=== PATIENT | male | born 1990 | race Caucasian/White ===

== ENCOUNTER 2016-10-17 18:40 | Emergency (ER) | payer OTHER ==
[2016-10-17 19:08] VITALS: BP 139/75
--- NOTE | 2016-10-17 21:00 | ED GENERAL ADULT ---
History of Present Illness General Chief Complaint: ETOH/Drug Related Complaint Stated Complaint: ETOH/HEROIN DETOX Source: patient, family Exam Limitations: no limitations Vital Signs & Intake/Output Vital Signs & Intake/Output Vital Signs Date Time Temp Pulse Resp B/P Pulse O2 O2 Flow FiO2 Ox Delivery Rate 10/17 2120 Room Air 10/17 1908 101 20 139/75 99 ED Intake and Output 10/18 0000 10/17 1200 Intake Total Output Total Balance Patient 152 lb Weight Allergies Coded Allergies: codeine (NAUSEA 10/17/16) Triage Note: PER PT NEED ETOH/HEROIN DETOX LAST USE 1 HR AGO REPORTS MORE HEROIN THAN ETOH Triage Nurses Notes Reviewed? yes HPI: She presents requesting detox from heroin. Patient sniffs heroin. 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 Patient states he occasionally drinks but not that often. There has been no history of DTs or seizures. There are no blackouts. Patient denies any suicidal or homicidal ideations. Patient denies any chest pain or shortness of breath. Past History Travel History Traveled to [place] past 21 day No Medical History Any Pertinent Medical History? see below for history Neurological: NONE EENT: NONE Cardiovascular: NONE Respiratory: NONE Gastrointestinal: NONE Hepatic: NONE Renal: NONE Musculoskeletal: NONE Psychiatric: ADD Endocrine: NONE Surgical History Surgical History: non-contributory Psychosocial History What is your primary language Syriac Tobacco Use: Current Daily Use Daily Tobacco Use Amount/Type: => 5 Cigarettes daily ETOH Use: occasional use Illicit Drug Use: heroin Family History Hx Contributory? No Review of Systems Review of Systems Constitutional: Reports: no symptoms. EENTM: Reports: no symptoms. Respiratory: Reports: no symptoms. Cardiovascular: Reports: no symptoms. GI: Reports: no symptoms. Genitourinary: Reports: no symptoms. Musculoskeletal: Reports: no symptoms. Skin: Reports: no symptoms. Neurological/Psychological: Reports: no symptoms. Hematologic/Endocrine: Reports: no symptoms. Immunologic/Allergic: Reports: no symptoms. All Other Systems: Reviewed and Negative Physical Exam Physical Exam General Appearance: well developed/nourished, alert, awake, mild distress Head: atraumatic, normal appearance Eyes: Bilateral: PERRL, EOMI. Ears, Nose, Throat: normal pharynx, normal ENT inspection, hearing grossly normal Neck: normal inspection, supple, full range of motion Respiratory: normal breath sounds, chest non-tender, no respiratory distress, lungs clear Cardiovascular: regular rate/rhythm, normal peripheral pulses Gastrointestinal: normal bowel sounds, soft, non-tender, no organomegaly Back: normal inspection, normal range of motion Extremities: normal inspection, normal capillary refill, normal range of motion, no edema Neurologic/Psych: no motor/sensory deficits, awake, alert, oriented x 3, normal gait, normal mood/affect Skin: intact, normal color, warm/dry Lymphatic: no anterior cervical carlos Core Measures ACS in differential dx? No CVA/TIA Diagnosis: No Severe Sepsis Present: No Septic Shock Present: No Progress Differential Diagnoses I considered the following diagnoses in my evaluation of the patient: [Opiate dependency] Plan of Care: Orders Procedure Date/time Status Add-on Test (ER Only) 10/18 2123 Active CBC WITHOUT DIFFERENTIAL 10/17 2099 Complete COMPREHENSIVE METABOLIC PANEL 10/17 2040 Complete URINE DRUG SCREEN FOR ER ONLY 10/17 190 Complete ETHANOL 10/17 190 Complete Laboratory Tests 10/17/16 2100: Sodium Cancelled, Potassium Cancelled, Chloride Cancelled, Carbon Dioxide Cancelled, Anion Gap Cancelled, BUN Cancelled, Creatinine Cancelled, BUN/ Creatinine Ratio Cancelled, Glucose Cancelled, Calcium Cancelled, Total Bilirubin Cancelled, AST Cancelled, ALT Cancelled, Alkaline Phosphatase Cancelled, Total Protein Cancelled, Albumin Cancelled, Globulin Cancelled, Albumin/Globulin Ratio Cancelled 10/17/162040: Anion Gap 15, Estimated GFR > 60, BUN/Creatinine Ratio 20.0, Glucose 109 H, Calcium 10.2, Total Bilirubin 0.5, AST 24, ALT 43, Alkaline Phosphatase 87, Total Protein 8.3 H, Albumin 5.0, Globulin 3.3, Albumin/Globulin Ratio 1.5, CBC w Diff NO MAN DIFF REQ, RBC 5.00, MCV 93.0, MCH 31.0, RDW 13.2, MPV 8.4, Gran % 60.0, Lymphocytes % 27.3, Monocytes % 6.5, Eosinophils % 5.7 H, Basophils % 0.5 , Absolute Granulocytes 4.9, Absolute Lymphocytes 2.2, Absolute Monocytes 0.5, Absolute Eosinophils 0.5, Absolute Basophils 0, PUBS MCHC 33.4, Serum Alcohol 209.0 10/17/161922: Urine Opiates Screen > 4000.00 H, Methadone Screen < 40, Barbiturate Screen < 60, Ur Phencyclidine Scrn < 6.00, Amphetamines Screen < 100, U Benzodiazepines Scrn < 85, Urine Cocaine Screen > 1000 H, Urine Cannabis Screen < 5.00 Initial ED EKG: none Comments: Patient called detox facilities while in our emergency department. Patient is going to go to a facility in [place] at 9:30 tomorrow morning. Patient will be discharged into his father's care and the patient will go to the airport tomorrow morning. Departure Departure Disposition: HOME OR SELF CARE Condition: Stable Clinical Impression Primary Impression: Opiate dependence Referrals: PATIENT HAS NO PRIMARY CARE DR (PCP/Family) Additional Instructions: GO TO REHAB [facility] FOR ANY CONCERNS Departure Forms: Customer Survey General Discharge Information Critical Care Note Critical Care Note Critical Care Time: non-applicable
[2016-10-17 21:48] LABS: ABSOLUTE BASOPHIL COUNT 0 /CUMM (0.0-0.2); ABSOLUTE EOSINOPHIL COUNT 0.5 /CUMM (0.0-0.7); ABSOLUTE GRANULOCYTE CT 4.9 /CUMM (1.4-6.5); ABSOLUTE LYMPH COUNT 2.2 /CUMM (1.2-3.4); ABSOLUTE MONOCYTE COUNT 0.5 /CUMM (0.10-0.60); BASOPHIL % 0.5 % (0.0-2.0); EOSINOPHIL % 5.7 % (0-5); HEMATOCRIT 46.4 % (42-52); MEAN CORPUSCULAR HGB CONC 33.4 G/DL (33.0-37.0); MEAN PLATELET VOLUME 8.4 FL (7.4-10.4); PLATELET COUNT 338 /CUMM (130-400); RBC DISTRIBUTION WIDTH 13.2 % (11.5-14.5); WHITE BLOOD CELL COUNT 8.1 /CUMM (4.8-10.8)
== END 2016-10-17 22:40 ==
LOC: ERH 18:40
PROVIDERS: Emergency Medicine
DX: F11.20 Opioid dependence, uncomplicated (principal)
CPT/HCPCS: 80307; G0480